=== PATIENT | male | born 1990 | race Asian ===

== ENCOUNTER 2017-12-10 11:43 | Emergency (ER) | payer OTHER ==
[2017-12-10] MEDS ORDERED: PROPARACAINE 0.5% OPHTH DROPS 15 ML LEFTEYE STA (12:17)
--- NOTE | 2017-12-10 12:26 | ED Physician Documentation ---
PD HPI OPHTHO - Stated complaint Stated Complaint: LT EYE PX/POST SURGERY 2 WEEK AGO - Chief complaint Chief Complaint: Heent - History obtained from History obtained from: Patient - History of Present Illness Timing - onset: Today (On November 26 he had [place] bil[place]. He was doing well, but today suddenly while opening his eyes felt severe pain in the left eye without visual deficit.) Review of Systems Ten Systems: 10 systems reviewed and negative Constitutional: denies: Fever, Chills Eyes: reports: Photophobia, Discharge, Irritation. denies: Loss of vision, Decreased vision Ears: denies: Loss of hearing, Ear pain PD PAST MEDICAL HISTORY - Past Medical History Cardiovascular: None Respiratory: None Neuro: None Endocrine/Autoimmune: None GI: None : None HEENT: Other Psych: None Musculoskeletal: None Derm: None - Past Surgical History Past Surgical History: No - Social History Does the pt smoke?: No Smoking Status: Never smoker Does the pt drink ETOH?: Yes Does the pt have substance abuse?: No - Family History Family history: reports: Non contributory - Immunizations Immunizations are current?: Yes - POLST Patient has POLST: No PD ED PE NORMAL - Vitals Vital signs reviewed: Yes - General General: Alert and oriented X 3, Other (He is uncomfortable; But after the administration of proparacaine he is pain-free.) - HEENT HEENT: PERRL, EOMI, Other (Grossly there is no obvious abnormality, but on fluorescein uptake there is a large area that is very broad medially.) Results - Vitals Vitals: Vital Signs - 24 hr 12/10/17 11:54 Temperature 36.2 C L Heart Rate 83 Respiratory 16 Rate Blood Pressure 128/75 O2 Saturation 100 Oxygen O2 Source Room air PD MEDICAL DECISION MAKING - ED course ED course: I spoke with the on-call diesel service technician in [place] who felt that he had eroded his cornea when he open his eyes based on my description. [place]. We thought about sending him back to [place], but Dr. Orosco was here in the operating room and willing to see him in his office in 45 minutes. - Sepsis Event Vital Signs: Vital Signs - 24 hr 12/10/17 11:54 Temperature 36.2 C L Heart Rate 83 Respiratory 16 Rate Blood Pressure 128/75 O2 Saturation 100 Oxygen O2 Source Room air Departure - Departure Disposition: 01 Home, Self Care Clinical Impression: Status post advanced surface ablation photorefractive keratectomy (PRK) Corneal laceration of left eye Qualifiers: Encounter type: initial encounter Qualified Code(s): S05.32XA - Ocular laceration without prolapse or loss of intraocular tissue, left eye, initial encounter Condition: Good Record reviewed to determine appropriate education?: Yes Follow-Up: Valentín Orosco MD [Provider Admit Priv/Credential] - (2pm today!!!)
[2017-12-10 13:25] VITALS: BP 122/74
== END 2017-12-10 13:26 | disposition home or self-care (01) ==
LOC: ED 11:43
DX: S05.32XA Ocular laceration without prolapse or loss of intraocular tissue, left eye, initial encounter (principal); Z98.890 Other specified postprocedural states
CPT/HCPCS: 99283; J3490